=== PATIENT | female | born 1980 | race Caucasian/White ===

== ENCOUNTER 2017-02-06 11:12 | Day surgery (SDC) | payer OTHER ==
[~2017-02-06] VITALS: Ht 167.6 cm; Wt 67.7 kg
[~2017-02-06 11:12] MED LIST: CALC600T5 PO; PREN1TAB49 PO; [UNRECOGNIZED DRUG - CODE] PO
[2017-02-06 11:48] VITALS: Ht 167.6 cm; Wt 67.7 kg
== END 2017-02-06 11:58 | disposition home or self-care (01) ==
LOC: SDS 11:12
PROVIDERS: ATTEND Orthopaedic Surgery Hand Surgery
DX: M67.431 Ganglion, right wrist (principal); Z53.09 Procedure and treatment not carried out because of other contraindication